=== PATIENT | male | born 1975 | race Caucasian/White ===

== ENCOUNTER → 2017-06-20 | Outpatient (CLI) | payer OTHER | LOC: FIMAGING 11:16 | PROVIDERS: ATTEND Registered Nurse | DX: J98.4 Other disorders of lung (principal) ==

== ENCOUNTER 2018-05-04 17:37 | Emergency (ER) | payer OTHER ==
--- NOTE | 2018-05-04 17:46 | EDPHY ---
H & P Time Seen by Provider: 05/04/18 17:44 HPI/ROS: CHIEF COMPLAINT: Right flank pain HISTORY OF PRESENT ILLNESS: This is a healthy 42-year-old male who presents with right flank pain that radiates into his right groin (not into the testicle) . He has had a dull aching sensation in the right flank on and off for the last 6 weeks. The pain worsened today and became constant, sharper in nature. He rates it as a "4.5/10". He has not taken anything for pain today. Over the last few weeks he has taken Advil occasionally. He has not had fever, nausea, vomiting, diarrhea, dysuria, urgency, or frequency. He has not been aware of hematuria. He had a right inguinal hernia repaired at age 3. He has not had any abdominal or groin bulging. No trauma and no new exercise routine--she does not think that this is musculoskeletal pain. He saw his primary care physician for this pain a few weeks back, but was not experiencing pain at the time of that visit. He had a normal urinalysis at that visit. REVIEW OF SYSTEMS: A ten system review of systems was performed and is negative with the exception of the items mentioned in the HPI. Past medical history: Occasional sciatica Past surgical history: Right inguinal hernia repair at age 3 and vasectomy Social history: He works as a truck driver salesperson. He does not use tobacco products. He uses alcohol socially. No illicit drugs. General Appearance: Alert. Vital signs reviewed. Blood pressure 125/70. Eyes: Pupils equal and round, no conjunctival injection, no discharge. Anicteric. ENT, Mouth: Mucous membranes are moist, no oropharyngeal erythema or edema. Neck: No lymphadenopathy, supple. Respiratory: Lungs are clear to auscultation; no wheezes, rales, or rhonchi. Cardiovascular: Regular rate and rhythm; no murmur, rub, or gallop. Gastrointestinal: Abdomen is soft and nontender, no masses or organomegaly, bowel sounds normal. Skin: Warm and dry, no rashes on exposed skin, normal color. Back: Nontender to palpation over the thoracolumbar spine. No CVAT. No palpable muscle spasm. Extremities: No lower extremity edema, no calf tenderness or swelling. Neurological: Alert and oriented. Moving all four extremities easily and equally. Psychiatric: Normal affect. Constitutional: Initial Vital Signs Temperature (C) 36.5 C 05/04/18 17:44 Heart Rate 75 05/04/18 17:44 Respiratory Rate 16 05/04/18 17:44 Blood Pressure 125/70 H 05/04/18 17:44 O2 Sat (%) 98 05/04/18 17:44 O2 Delivery Mode Room Air Allergies/Adverse Reactions: Penicillins Allergy (Intermediate, Verified 05/04/18 17:43) vomited codeine Allergy (Verified 05/04/18 17:43) Home Medications: Medication Instructions Recorded NK [No Known Home Meds] 05/04/18 Medical Decision Making ED Course/Re-evaluation: Urinalysis is entirely normal; no blood. I spoke at some length with the patient about how to proceed. He feels that he has put up with this for quite some time and now seems to be worsening. He understands that around 85% of people with ureterolithiasis have hematuria, and he does not have hematuria, but he would like to proceed with a CT scan of the abdomen and pelvis to assess for kidney stone. We discussed other diagnostic possibilities such as musculoskeletal pain, urinary tract infection (his urine is normal and I do not suspect UTI or prostatitis), hernia, appendicitis (unlikely given the chronicity and his physical exam which is without right lower quadrant tenderness). BMP normal except for slight elevation of blood glucose. Renal function WNL. Patient re-evaluated at 7 PM. He feels a bit better after the Toradol. I reviewed the patient's CT scan I spoke with Dr. Jimenez about it. The scan is normal. Differential Diagnosis: Flank pain including but not limited to musculoskeletal causes, kidney stone, pyelonephritis, shingles, and intra-abdominal causes such as diverticulitis and appendicitis. - Data Points Laboratory Results: 05/04/18 18:45 POC Sodium 141 mEq/L mEq/L (135-145) POC Potassium 3.9 mEq/L mEq/L (3.3-5.0) POC Chloride 103.0 mEq/L mEq/L (97-110) POC Total CO2 26 mEq/L mEq/L (22-31) POC BUN 14 mg/dL mg/dL (7-23) POC Creatinine 0.9 mg/dL mg/dL (0.7-1.3) POC Glucose 108 mg/dL H mg/dL (70-100) POC Calcium 9.8 mg/dL mg/dL (8.5-10.4) Medications Given: Discontinued Medications Ketorolac Tromethamine (Toradol) 15 mg IVP EDNOW ONE Stop: 05/04/18 18:28 Last Admin: 05/04/18 18:38 Dose: 15 mg Point of Care Test Results: Chemistry 05/04/18 18:45 POC Sodium 141 mEq/L mEq/L (135-145) POC Potassium 3.9 mEq/L mEq/L (3.3-5.0) POC Chloride 103.0 mEq/L mEq/L (97-110) POC Total CO2 26 mEq/L mEq/L (22-31) POC BUN 14 mg/dL mg/dL (7-23) POC Creatinine 0.9 mg/dL mg/dL (0.7-1.3) POC Glucose 108 mg/dL H mg/dL (70-100) POC Calcium 9.8 mg/dL mg/dL (8.5-10.4) Urine Dip Collection Date 05/04/18 Collection Time 18:00 Specific Rudy (1.002-1.030) 1.020 PH (5.0-7.5) 7.0 Leukocytes (Negative) Negative Nitrites (Negative) Negative Protein (Negative) Negative Glucose (Negative) Negative Ketones (Negative) Negative Urobilnogen (0.2-1.0 EU) 0.2 Bilirubin (Negative) Negative Blood (Negative) Negative Departure - Departure Disposition: Home, Routine, Self-Care Clinical Impression: Right flank pain Condition: Good Instructions: Flank Pain (ED) Additional Instructions: Adult Pain & Fever Control: We recommend Acetaminophen (Tylenol) and Ibuprofen (Motrin,Advil) for pain and fever control. When fever is high or pain severe, both drugs can be used at the same time, but at different intervals. Please note the time differences. Your dose is: Acetaminophen 650mg every 4 to 6 hours Ibuprofen 400mg every 6 hours with food OR Note: do not take Acetaminophen with Hydrocodone (Vicodin, Lortab) or Oycodone (Percocet). These medications also contain Acetaminophen. No more than 3000mg of Acetaminophen should be taken in 24 hours (for an adult). Return if you develop fever, severe persistent pain, new or concerning symptoms. Follow up with your primary care doctor if you are not getting better. Referrals: NONE *PRIMARY CARE P,. [Primary Care Provider] - As per Instructions Nichol Kennedy MD [Medical Doctor] - As per Instructions
[2018-05-04 17:49] VITALS: BP 125/70
[2018-05-04] MEDS ORDERED: KETOROLAC 15 MG/1 ML SDV IVP ONE (18:27)
== END 2018-05-04 19:25 | disposition home or self-care (01) ==
LOC: CED 17:37
DX: R10.9 Unspecified abdominal pain (principal); Z88.0 Allergy status to penicillin
CPT/HCPCS: 74176-PO; 80048-ER; 96374-ER; J1885

== ENCOUNTER → 2018-09-06 10:08 | Emergency (ER) | payer OTHER | END | disposition left against medical advice (07) | LOC: CED 10:08 ==

== ENCOUNTER → 2018-09-06 | Outpatient (CLI) | payer OTHER | LOC: CIMAGING 09:22 ==